=== PATIENT | female | born 1950 | race Caucasian/White ===

== ENCOUNTER → 2025-01-07 11:48 | Outpatient (REF) | payer MEDICARE, OTHER, SELFPAY ==
[2025-01-07 14:41] LABS: Hematocrit 37.8 % (37.0-47.0); Hemoglobin 12.4 g/dL (12.0-16.0); Mean Corp Hgb Conc. 32.8 g/dL (33.0-37.0); Mean Corpuscular Volume 94.7 fL (81.0-99.0); Platelet Count 272 10^3/uL (130-400); Red Cell Dist. Width 13.4 % (11.5-14.5)
[2025-01-07 15:16] LABS: ALT (SGPT) 18 U/L (0-35); AST (SGOT) 32 U/L (14-36); Albumin 4.4 g/dl (3.5-5.0); Alkaline Phosphatase 99 U/L (38-126); Blood Urea Nitrogen 18 mg/dl (7-17); Calcium 9.9 mg/dl (8.4-10.2); Carbon Dioxide 29 mmol/L (22-30); Chloride 104 mmol/L (98-107); Glucose 78 mg/dl (70-99); Potassium 4.6 mmol/L (3.5-5.1); Sodium 137 mmol/L (135-145); Total Protein 7.1 g/dl (6.3-8.2); eGFR > 60.00
== END ==
LOC: SDSPAT 11:48
PROVIDERS: ATTENDING PHYSICIAN Orthopaedic Surgery Orthopaedic Surgery of the Spine; FAMILY PHYSICIAN Internal Medicine
DX: Z01.818 Encounter for other preprocedural examination (principal)
CPT/HCPCS: 36415; 80053; 85027; 86850; 86900; 86901; 87070; 93005

== ENCOUNTER 2025-01-23 06:05 | Day surgery (SDC) | payer MEDICARE, OTHER, SELFPAY ==
[2025-01-07 14:13] VITALS: BMI 25.2
[2025-01-17 08:07] VITALS: BMI 25.2
[2025-01-23] VITALS (17 sets, daily range): BP systolic 111–152; BP diastolic 59–80
[2025-01-23] MEDS: NORMOSOL-R/PLASMALYTE-A 1000 IV ×2 (10:35→17:31)
[2025-01-23] MEDS: METHOCARBAMOL 1500 MG PO ×3 (10:51→22:15)
[2025-01-23] MEDS: LYRICA 150 MG PO (11:14)
--- NOTE | 2025-01-23 13:47 | W.PN.ORTHO ---
Today's Communication / Plan
-
d/c when stable
Assessment
.
Dressing:
Clean, dry and intact.
Plan
.
Surgery / Date: R L3-4 Rev decompression, L3-4-[address] [facility] 01/23/25
Activity:
Out of bed.
PT/OT
Discharge Plan: Home
Vital Signs and Labs
.
Vital Signs and Labs:
Temp Pulse Resp BP Pulse Ox
97.9 F 77 16 152/80 99
01/23/25 10:20 01/23/25 10:20 01/23/25 10:20 01/23/25 10:20 01/23/25 10:20
[2025-01-23] MEDS: ZOFRAN 4 MG IV (14:15)
[2025-01-23] MEDS: DILAUDID 0.5 MG IV ×2 (14:15→14:39)
--- NOTE | 2025-01-23 14:40 | W.DS.TRANS ---
DC Summary - [employer]
-
Discharge Instructions:
Discharge Diagnosis/Procedures R L3-4 Rev decompression, L3-4-5 psf [facility]
25
Diet As tolerated
Activity No strenuous activity
Driving Restrictions No driving
Instructions:
Stand-Alone Forms: [facility].
Changes to Home Medications: Yes
Discharge Medications:
DC Medications w/original date entered in [employer]
Botox 1 dose [id number] cervical dystonia 01/16/25
Held on 01/23/25. Instructions: Resume on 03/20/25.
Calcium Soft Chew 1 dose PO DAILY 01/16/25
Celebrate Multivitamin W/Iron 1 dose PO DAILY 01/16/25
cholecalciferol (vitamin D3) 50 mcg (2,000 unit) tablet (Vitamin D3) 100 mcg PO DAILY 01/16/25
cyanocobalamin (vitamin B-12) 5,000 mcg capsule 5,000 mcg PO MOWEFR 01/16/25
Saccharomyces boulardii 250 mg capsule (Florastor) 250 mg PO BID #1 cap 01/23/25
cephalexin 500 mg capsule 500 mg PO QID infection prevention #20 caps 01/23/25
dexamethasone 4 mg tablet 4 mg PO BID inflammation #6 tabs 01/23/25
docusate sodium 100 mg tablet (Stool Softener) 100 mg PO BID #0 tabs 01/23/25
gabapentin 100 mg tablet 200 mg (2 x 100 mg) PO HS #0 tabs 01/23/25
magnesium hydroxide 400 mg/5 mL oral suspension (Milk of Magnesia) 30 ml PO HS PRN constipation #1 mL 01/23/25
ondansetron 4 mg disintegrating tablet 4 mg PO Q6H PRN n/v #20 tabs 01/23/25
oxycodone 5 mg tablet 5 mg PO Q6H PRN 1 tab moderate pain, 2 tabs severe pain #30 tabs 01/23/25
sennosides 8.6 mg tablet (Senokot) 17.2 mg (2 x 8.6 mg) PO BID laxative #2 tabs 01/23/25
Home Medication Changes
Saccharomyces boulardii 250 mg capsule (Florastor) 250 mg PO BID #1 cap 01/23/25
cephalexin 500 mg capsule 500 mg PO QID infection prevention #20 caps 01/23/25
dexamethasone 4 mg tablet 4 mg PO BID inflammation #6 tabs 01/23/25
docusate sodium 100 mg tablet (Stool Softener) 100 mg PO BID #0 tabs 01/23/25
gabapentin 100 mg tablet 200 mg (2 x 100 mg) PO HS #0 tabs 01/23/25
magnesium hydroxide 400 mg/5 mL oral suspension (Milk of Magnesia) 30 ml PO HS PRN constipation #1 mL 01/23/25
ondansetron 4 mg disintegrating tablet 4 mg PO Q6H PRN n/v #20 tabs 01/23/25
oxycodone 5 mg tablet 5 mg PO Q6H PRN 1 tab moderate pain, 2 tabs severe pain #30 tabs 01/23/25
sennosides 8.6 mg tablet (Senokot) 17.2 mg (2 x 8.6 mg) PO BID laxative #2 tabs 01/23/25
Pending Results: No
[2025-01-23] MEDS: TYLENOL 1000 MG PO ×2 (17:30→22:15)
[2025-01-23] MEDS: ULTRAM 50 MG PO (18:09)
[2025-01-23] MEDS: ANCEF 5 IV (18:27)
[2025-01-23] MEDS: COLACE 100 MG PO (20:45)
[2025-01-23] MEDS: SENOKOT 17.2 MG PO (20:45)
[2025-01-23] MEDS: LYRICA 75 MG PO (22:15)
[2025-01-24] MEDS: NORMOSOL-R/PLASMALYTE-A 1000 IV (00:30)
[2025-01-24] MEDS: ANCEF 5 IV (02:15)
[2025-01-24 03:12] VITALS: BP 113/60
[2025-01-24] MEDS: ULTRAM 50 MG PO (05:40)
[2025-01-24] MEDS: TYLENOL PO (06:16)
[2025-01-24 06:24] LABS: Hematocrit 33.2 % (37.0-47.0); Hemoglobin 11.0 g/dL (12.0-16.0)
[2025-01-24 06:42] LABS: Blood Urea Nitrogen 11 mg/dl (7-17); Calcium 9.2 mg/dl (8.4-10.2); Carbon Dioxide 27 mmol/L (22-30); Chloride 107 mmol/L (98-107); Estimated Creatinine Clearance 70 ml/min; Glucose 96 mg/dl (70-99); Potassium 4.3 mmol/L (3.5-5.1); Sodium 138 mmol/L (135-145); eGFR > 60.00
--- NOTE | 2025-01-24 07:42 | CM ---
CM reviewed medical records. Patient lives independently with . Patient does not have a history of VN. Patient has been to SNF, but does not remember the name of it. Patient has medication coverage and is active with her PCP.
Plan for discharge to home with . Patient will follow up with surgery for PT/OT clearance.
PLAN: home, no needs.
[2025-01-24 07:55] VITALS: BP 117/62
--- NOTE | 2025-01-24 08:25 | W.DS.TRANS ---
DC Summary - Cna Hha
-
Discharge Instructions:
Discharge Diagnosis/Procedures R L3-4 Rev decompression, L3-4-5 psf [facility]
25
Diet As tolerated
Activity No strenuous activity
Driving Restrictions No driving
Instructions:
Stand-Alone Forms: [facility]/C Inst.
Changes to Home Medications: No
Discharge Medications:
DC Medications w/original date entered in [employer]
Botox 1 dose [id number] cervical dystonia 01/16/25
Held on 01/23/25. Instructions: Resume on 03/20/25.
Calcium Soft Chew 1 dose PO DAILY 01/16/25
Celebrate Multivitamin W/Iron 1 dose PO DAILY 01/16/25
cholecalciferol (vitamin D3) 50 mcg (2,000 unit) tablet (Vitamin D3) 100 mcg PO DAILY 01/16/25
cyanocobalamin (vitamin B-12) 5,000 mcg capsule 5,000 mcg PO MOWEFR 01/16/25
Saccharomyces boulardii 250 mg capsule (Florastor) 250 mg PO BID #1 cap 01/23/25
cephalexin 500 mg capsule 500 mg PO QID infection prevention #20 caps 01/23/25
dexamethasone 4 mg tablet 4 mg PO BID inflammation #6 tabs 01/23/25
docusate sodium 100 mg tablet (Stool Softener) 100 mg PO BID #0 tabs 01/23/25
gabapentin 100 mg tablet 200 mg (2 x 100 mg) PO HS #0 tabs 01/23/25
magnesium hydroxide 400 mg/5 mL oral suspension (Milk of Magnesia) 30 ml PO HS PRN constipation #1 mL 01/23/25
ondansetron 4 mg disintegrating tablet 4 mg PO Q6H PRN n/v #20 tabs 01/23/25
oxycodone 5 mg tablet 5 mg PO Q6H PRN 1 tab moderate pain, 2 tabs severe pain #30 tabs 01/23/25
sennosides 8.6 mg tablet (Senokot) 17.2 mg (2 x 8.6 mg) PO BID laxative #2 tabs 01/23/25
Home Medication Changes
Pending Results: No
--- NOTE | 2025-01-24 08:26 | W.PN.SP ---
Today's Communication / Plan
-
s/p PSF indirect decmpression
Doing well
Subjective / Objective
Subjective Data
PT doing well
LEgs better
Walking
Objective Data
Vital Signs
Temp Pulse Resp BP Pulse Ox
97.4 F 68 16 113/60 94
01/24/25 03:12 01/24/25 03:12 01/24/25 03:12 01/24/25 03:12 01/24/25 03:12
Intake and Output
01/23/25 01/24/25 01/25/25
06:59 06:59 06:59
Intake Total 2800 / 2800
Output Total 400 / 400
Balance 2400 / 2400
Intake:
Oral fluids 1200 / 1200
IV fluids (Total) 1600 / 1600
Normosol 300 / 300
Output:
Urine, Voided 400 / 400
Other:
Number of approximated MODERATE 2
amounts of urine
Number of approximated LARGE 1
amounts of urine
Lab Data
01/24/25 05:38
01/24/25 05:38
Physical Exam
-
Good strength
[2025-01-24 09:46] VITALS: BP 119/74
[2025-01-24] MEDS: COLACE 100 MG PO (09:51)
[2025-01-24] MEDS: METHOCARBAMOL 1500 MG PO (09:51)
[2025-01-24] MEDS: SENOKOT 17.2 MG PO (09:51)
[2025-01-24] MEDS: LYRICA 75 MG PO (09:51)
[2025-01-24] MEDS: ROXICODONE 10 MG PO (09:52)
--- NOTE | 2025-01-24 10:33 | W.PN.ORTHO ---
Today's Communication / Plan
-
D/C
Assessment
.
Distal Motor Intact: Yes
Dressing:
Clean, dry and intact.
Plan
.
Surgery / Date: R L3-4 Rev decompression, L3[facility]
Activity:
Out of bed.
PT/OT
Discharge Plan: Home
Subjective
.
.:
Patient resting comfortably.
Vital Signs and Labs
.
Vital Signs and Labs:
Lab Results
01/24/25 05:38
01/24/25 05:38
Temp Pulse Resp BP Pulse Ox
98.7 F 81 16 117/62 96
01/24/25 07:55 01/24/25 07:55 01/24/25 07:55 01/24/25 07:55 01/24/25 07:55
Physical Exam
-
HEENT: No pallor, cyanosis, or jaundice. Throat clear.
NECK: Supple. No JVD.
RESPIRATORY: Lungs clear to auscultation.
CVS: S1, S2 normal. RRR.� No murmur, rub or gallop.
ABDOMEN: Soft, non-tender. No distension. BS+/normal.
EXTREMITIES: strength equal, no calf pain with palpation
[employer]ACHINE TENDER: AOx3. No focal deficits. lacquer sizer grossly intact
[2025-01-24 11:10] VITALS: BP 109/79
[2025-01-24] MEDS: NORMOSOL-R/PLASMALYTE-A IV (12:51)
[2025-01-24 19:11] LABS: Hepatitis C Antibody Negative (Negative)
== END 2025-01-24 12:51 | disposition home or self-care (01) ==
LOC: SDS 06:05
PROVIDERS: Physician Assistant Medical; ATTENDING PHYSICIAN Orthopaedic Surgery Orthopaedic Surgery of the Spine; FAMILY PHYSICIAN Internal Medicine
DX: M48.062 Spinal stenosis, lumbar region with neurogenic claudication (principal); M41.9 Scoliosis, unspecified; M43.16 Spondylolisthesis, lumbar region; Z98.890 Other specified postprocedural states
CPT/HCPCS: 22612; 72100; 76000; 80048; 85014; 85018; 86803; 86900; 86901; 87070; 97162; 97166; 97535; C1713; C1776